=== PATIENT | female | born 1980 | race Caucasian/White ===

== ENCOUNTER 2018-04-16 15:38 | Inpatient (IN) ==
[2018-04-16 16:22] LABS: URINE SOURCE CLEAN CATCH
[2018-04-16 16:28] LABS: BASO# 0.02 X1000 (0.0-0.2); BASO% 0.1 % (0.0-0.8); EOS# 0.12 X1000 (0.0-0.7); EOS% 0.7 % (0.0-10.0); HEMATOCRIT 42.8 % (37.0-47.0); HEMOGLOBIN 13.9 g/dL (12.0-16.0); IMM GRAN# 0.03 X1000 (0.0-0.04); IMM GRAN% 0.2 % (0.0-0.5); LYMPH# 2.27 X1000 (1.2-3.4); LYMPH% 13.1 % (20.5-51.1); MCHC 32.5 g/dL (33-37); MCV 83.3 FL (81-99); MONO# 0.91 X1000 (0.11-0.59); MONO% 5.2 % (1.7-9.3); MPV 9.2 FL (7.4-10.4); NEUT# 14.01 X1000 (1.4-6.5); NEUT% 80.7 % (42.2-75.2); PLT 359 X1000 (130-400); RBC 5.14 XMIL (4.2-5.4); RDW 13.3 % (11.5-14.5); WBC 17.36 X1000 (4.8-10.8)
[2018-04-16 16:32] LABS: BILIRUBIN URINE NEGATIVE (NEGATIVE); BLOOD URINE LARGE (NEGATIVE); COLOR YELLOW; GLUCOSE URINE NEGATIVE (NEGATIVE); KETONE URINE NEGATIVE (NEGATIVE); LEUKOCYTES URINE LARGE (NEGATIVE); NITRITE URINE NEGATIVE (NEGATIVE); PH URINE 5.5; PROTEIN URINE TRACE mg/dL (NEGATIVE); SP GRAVITY URINE 1.018; TURBIDITY URINE HAZY (CLEAR); UROBILINOGEN URINE NORMAL (NORMAL)
[2018-04-16 16:33] LABS: UR EPITHELIAL CELLS <10 /HPF (<10); URINE BACTERIA NEGATIVE /HPF; URINE RBC 20-40 /HPF (<10); URINE WBC TNTC /HPF (<10)
[2018-04-16 16:51] LABS: AGAP 12; ALB/GLOB RATIO 1.3; ALBUMIN 4.3 g/dL (3.5-5.0); ALKALINE PHOSPHATASE 76 U/L (32-104); AMYLASE 34 U/L (20-200); BUN 7 mg/dL (8-22); CALCIUM 9.4 mg/dL (8.8-10.2); CHLORIDE 100 mmol/L (98-107); COSMO 274; CREATININE 0.8 mg/dL (0.5-0.9); ESTIMATED GFR > 60; GLUCOSE 108 mg/dL (70-104); GOT 13 U/L (10-30); GPT 33 U/L (10-36); LIPASE 20 U/L (13-60); POTASSIUM 3.9 mmol/L (3.5-5.1); SODIUM 138 mmol/L (136-145); TCO2 26 mmol/L (25-35); TOTAL BILIRUBIN 0.73 mg/dL (0.20-1.00); TOTAL PROTEIN 7.6 g/dL (6.3-8.3)
--- NOTE | 2018-04-16 16:55 | Diag Imaging Result Doc PS360 ---
CT ABDOMEN/PELVIS W/O CONTRAST - 04/16/2018 INDICATION: PAIN COMPARISON: 04/02/2017 FINDINGS: The lung bases are clear and the heart size is normal. There is severe fatty change of the liver. Stable cholecystectomy clips. There is recurrent, severe diverticulitis. This is at the junction of the descending and sigmoid colon. No free air or drainable fluid collection. Urinary bladder, uterus, ovaries, and rectum are normal. Normal appendix. IMPRESSION: 1. Recurrent, severe acute sigmoid diverticulitis. Recommend treatment and a follow-up colonoscopy when the patient has resolved. 2. Severe fatty liver. This exam was performed using automated exposure control, adjustment of mA or kV according to patient size, and/or use of iterative reconstruction technique Electronically signed by Cornelius Kaminski 04/16/2018 4:52 PM
--- NOTE | 2018-04-16 18:30 | PROVIDER DOCUMENTATION ---
HPI-Abdominal Pain/GI Problem - General Chief Complaint: Abdominal Pain Stated Complaint: ABDOMINAL PAIN Time Seen by Provider: 04/16/18 18:19 Source: patient Allergies/Adverse Reactions: Patient Allergies Allergy/AdvReac Type Severity Reaction Status Date / Time sulfamethoxazole AdvReac Severe meningitis Verified 12/18/17 00:12 [From Bactrim] trimethoprim [From Bactrim] AdvReac Severe meningitis Verified 12/18/17 00:12 Home Medications: Home Medication List Medication Instructions Recorded Confirmed Last Taken Type Amoxicillin/Pot Clavulanate 875 mg PO Q12HR #14 tab 12/18/17 Unknown Rx [Augmentin] Ondansetron [Zofran Odt] 4 mg PO Q6HR #12 tab.rapdis 12/18/17 Unknown Rx - History of Present Illness-ABD Nature of Presenting Problems: 37yof present to ER With c/o left sided abd pain onset Friday. States it got much worse today. Pt reports going to an urgent care yesterday was placed on Cipro for "suspected diverticulitis". Reports low grade fevers of 99.5. Abdominal Pain Onset Location: reports: LLQ, suprapubic Pain Radiation: reports: no radiation Quality of Pain: reports: sharp, stabbing Onset/Duration: reports: 4 days ago Timing: reports: still present, getting worse Associated Symptoms: reports: fever/chills, nausea. denies: constipation, diarrhea, genitourinary problems, vomiting Review of Systems - Adult - REVIEW OF SYSTEMS - ADULT Constitutional: reports: see HPI, chills, fever Eyes: reports: no symptoms reported Ears, Nose, Mouth & Throat: reports: no symptoms reported Cardiovascular: reports: no symptoms reported Respiratory: reports: no symptoms reported Gastrointestinal: reports: see HPI, abdominal pain (left), nausea. denies: diarrhea, rectal bleeding, vomiting Genitourinary: reports: see HPI, dysuria. denies: frequency, flank pain, hematuria, urgency Musculoskeletal: reports: no symptoms reported Integumentary: reports: no symptoms reported Neurological: reports: no symptoms reported Psychiatric: reports: no symptoms reported Endocrine: reports: no symptoms reported Hematologic/Lymphatic: reports: no symptoms reported Allergic/Immunologic: reports: no symptoms reported All Other Systems: Reviewed and Negative Past History - Adult - PAST MEDICAL HISTORY-ADULT Review of Records: reports: Old Records Reviewed, Nursing Assessment Review, Medications Reviewed Major Childhood Illnesses: reports: denies history Cardiovascular: reports: denies history Respiratory: reports: denies history Gastrointestinal: reports: denies history Obstetrical/Gynecological: reports: denies history Genitourinary: reports: denies history Musculoskeletal: reports: denies history Neurological: reports: denies history Psychiatric: reports: denies history Endocrine/Immune: reports: denies history Other Conditions: reports: denies history - PRIOR SURGERIES/PROCEDURES Surgical/Procedure History: reports: cholecystectomy - IMMUNIZATION STATUS Childhood Immunizations: See Nurse Assessment Flu Vaccine: See Nurse Assessment - FAMILY HISTORY Family History: reviewed, not pertinent Physical Exam-General - PHYSICAL EXAM-ADULT Initial Vital Signs Reviewed: Yes - CONSTITUTIONAL General Appearance: alert, mild distress - HEAD, EARS, NOSE, MOUTH & THROAT HENMT: moist mucous membranes, normal ENT inspection - NECK Neck: full range of motion, supple, normal inspection - RESPIRATORY Respiratory: lungs clear, normal breath sounds - CARDIOVASCULAR Cardiovascular: regular rate, rhythm - GASTROINTESTINAL (ABDOMEN) Abdominal Exam: normal bowel sounds, soft, tenderness (left abd). negative: distended, guarding, rigid, rebound - LYMPHATIC Lymphatic: no adenopathy - MUSCULOSKELETAL Back Exam: normal inspection, no vertebral tenderness, CVA tenderness (left) Extremity: normal range of motion, normal gait, normal inspection - SKIN Integumentary: normal color, warm/dry - PSYCHIATRIC Psych/Mental Status: oriented x 3 Progress - PLAN OF CARE/RESULTS Progress/Plan/Lab Results: Vital Signs - 8 hr 04/16/18 15:49 Temperature 98.5 F Pulse Rate 96 H Respiratory Rate 18 Blood Pressure 140/92 O2 Sat by Pulse Oximetry 100 Bedside Urine ED: Urine Bedside Start: 04/16/18 16:11 Freq: Status: Inactive Protocol: Activity Type Activity Date Activity User E-Sign Co-Sign Detail Recorded Client Recorded Date Recorded By Document 04/16/18 16:12 [id number] 04/16/18 16:13 [id number] Edit Status 04/16/18 16:15 BKG DAEMON Active=>Inactive [id number] 04/16/18 16:15 BKG DAEMON 04/16/18 16:12 Point of Care [Bedside Point of Care] -Lot # [id number] - Results Negative -Control Line Visible? Yes Laboratory Results - last 24 hr 04/16/18 04/16/18 04/16/18 15:52 15:52 15:55 WBC 17.36 H RBC 5.14 Hgb 13.9 Hct 42.8 MCV 83.3 MCH 27.0 MCHC 32.5 L RDW Std Deviation 13.3 Plt Count 359 MPV 9.2 Immature Gran % (Auto) 0.2 Neut % (Auto) 80.7 H Lymph % (Auto) 13.1 L [place] % (Auto) 5.2 Eos % (Auto) 0.7 Baso % (Auto) 0.1 Immature Gran # (Auto) 0.03 Neut # (Auto) 14.01 H Lymph # (Auto) 2.27 [place] # (Auto) 0.91 H Eos # (Auto) 0.12 Baso # (Auto) 0.02 Sodium 138 Potassium 3.9 Chloride 100 Carbon Dioxide 26 Anion Gap 12 BUN 7 L Creatinine 0.8 Estimated GFR/1.73 m2 > 60 BUN/Creatinine Ratio 9 Glucose 108 H Calculated Osmolality 274 Calcium 9.4 Total Bilirubin 0.73 AST 13 ALT 33 Alkaline Phosphatase 76 Total Protein 7.6 Albumin 4.3 Globulin 3.3 Albumin/Globulin Ratio 1.3 Amylase 34 Lipase 20 Urine Source CLEAN CATCH Urine Color YELLOW Urine Turbidity HAZY Urine pH 5.5 Ur Specific [place] 1.018 Urine Protein TRACE A Ur Glucose (Stick) NEGATIVE Ur Ketones (Stick) NEGATIVE Urine Blood LARGE A Urine Nitrite NEGATIVE Urine Bilirubin NEGATIVE Urobilinogen Dipstick NORMAL Urine Leukocytes LARGE A Urine WBC (Auto) TNTC A Urine RBC (Auto) 20-40 A U Epithel Cells (Auto) <10 Urine Bacteria (Auto) NEGATIVE Orders Category Date Time Status ED: Urine Bedside ORDERED Care 04/16/18 15:51 Active Saline Loc DIRECTED Care 04/16/18 15:51 Active NPO Diet 04/16/18 15:51 Active Abdomen [CT ABDOMEN/PELVIS W/O CONTRAST] [CT] Stat Exams 04/16/18 16:12 Completed AMYLASE [CHEM] Stat Lab 04/16/18 15:52 Completed CBC WITH ELECTRONIC DIFF [HEME] Stat Lab 04/16/18 15:52 Completed COMPREHENSIVE METABOLIC PANEL [CHEM] Stat Lab 04/16/18 15:52 Completed LIPASE [CHEM] Stat Lab 04/16/18 15:52 Completed URINALYSIS W/POSS RFLX CULT [URINALYSIS] Stat Lab 04/16/18 15:55 Completed URINE CULTURE [RM] Routine Lab 04/16/18 16:54 Received Result Diagrams: 04/16/18 15:52 04/16/18 15:52 - REASSESSMENT Reassessment #1 Time Reassessed: 19:31 (pt updated of admission. agrees with plan. Requests pain med.) - CONSULTS/PCP/HOSPITALIST Notification #1 *Consult/PCP/Hospitalist*: Dr Altman, hospitalist Time Discussed: 19:27 (poss admit for diverticulitis. Requests order for levaquin 750mg IV now and Flagyl 500 q6h.) Consult Disposition: Admit Departure - Departure Date of Disposition Decision: 04/16/18 Time of Disposition Decision: 18:36 DIAGNOSIS: Diverticulitis Disposition: ADMITTED INPATIENT 09 Certified Medical Emergency: Emergent Condition: Fair Referrals and Follow-Ups: Lauren Mcginnis MD [Primary Care Provider] - - Critical Care Note This patient required my direct & personal management of CC.: No Attestation - Physician/ ISREAL Attestation Patient care was provided by Advanced Practice Provider:: Yes Advanced Practice Provider:: Dickson Back Advanced Practice Provider documentation review:: The Mid-level provider documentation, treatment plan and medical decision making was reviewed by the physician who agrees with all treatment and medical decision making by the MLP. The physician spent face to face time with patient:: No Advanced Practice Provider documentation review:: Supervising physician onsite and consulted in the evaluation and care of this patient. The physician did not have a face to face encounter with the patient.
[2018-04-16] MEDS ORDERED: LEVAQUIN 750 MG/D5W 750 MG/150 ML IVPB IV ONE (19:26)
[2018-04-16] MEDS ORDERED: FLAGYL 500 MG/NS 500 MG/100 ML IVPB IV SCH (19:30)
[2018-04-16] MEDS ORDERED: ZOFRAN IV ONE (19:31)
[2018-04-16] MEDS ORDERED: MORPHINE IV ONE (19:31)
--- NOTE | 2018-04-16 22:16 | HISTORY AND PHYSICAL ---
Patient of Lauren Mcginnis MD REASON FOR ADMISSION: Four day history of abdominal pain. HISTORY OF PRESENT ILLNESS: Ms. Shelley Garcia is a 37-year-old woman with a past medical history of hyperlipidemia who comes in to our facility with a 4-day history of left lower quadrant abdominal pain. She was seen in the Urgent Care facility yesterday when her pain became worse. She describes the pain as sharp, worse with movement and eases when she keeps still. Prior to this a week ago she was having protracted nausea and vomiting but after 2 days it stopped on its own. She denies any diarrhea. No hematochezia. No melanotic stools. No hematemesis. She admits to having fever and chills intermittently for the last couple of days. She denies any genitourinary complaints. The patient denies any kind of respiratory complaints. No focal neurological complaints. REVIEW OF SYSTEMS: 12 systems reviewed done and positive findings per HPI. ALLERGIES: Isotretinoin and Bactrim. MEDICATIONS: The patient was prescribed Levsin and Cipro yesterday. FAMILY HISTORY: Notable for diabetes, sleep apnea, diverticulosis, Gilbert's syndrome. SOCIAL HISTORY: The patient does not smoke but drinks one glass of wine per week. No history of drug abuse. He is . PAST SURGICAL HISTORY: Notable for cholecystectomy. LABORATORY DATA: White count 17,000, hemoglobin 13 and hematocrit 42. Platelets 359, 80% neutrophils, BUN 7, creatinine 0.8, glucose 108, lipase, amylase and hepatic function tests negative. Urinalysis positive for too numerous to count WBCs and 20-[address] of abdomen and pelvis showed recurrent severe sigmoid diverticulitis, severe fatty liver disease. PHYSICAL EXAMINATION: VITAL SIGNS: Blood pressure 140/92, heart rate 96, respirations 18, temperature 98.5. She is 100% on room air. GENERAL: She is a morbidly obese, pleasant, young woman with mild distress from her pain. She is alert and oriented to person and time with normal mood and affect. HEENT: Head normocephalic. Atraumatic. Eyes: PERRL, EOMI. Anicteric and not pale. ENT and oropharyngeal exam is grossly unremarkable. No central cyanosis. NECK: Supple. No JVD. No carotid bruit. No thyromegaly. CHEST: Clear to auscultation with good entry in both lung ferrera. CARDIOVASCULAR: First and second heart sounds are heard. No gallops, murmurs or rubs. Rhythm is regular. ABDOMEN: Protuberant and soft with tenderness confined to the left lower quadrant and suprapubic areas but no rebound or guarding. Bowel sounds are almost absent. Abdomen is slightly distended. No masses or megaly. RECTAL: Exam deferred at this time. EXTREMITIES: Patient has good distal pulse volume in all extremities. Rhythm is regular and symmetrical. No edema. No clubbing or peripheral cyanosis. NEUROLOGICAL: No focal deficits. SKIN: Intact. No breakdown, lesion or erythema. MUSCULOSKELETAL: Exam is grossly normal. ASSESSMENT: 1. Acute sigmoidal diverticulitis. 2. Early onset ileus secondary to No. 1. 3. Acute fatty liver disease. 4. Morbid obesity. PLAN: The patient will be started on empiric antibiotics, Flagyl and Levaquin for now. The patient will be kept n.p.o. and IV fluid resuscitation will be given. Followup abdominal x-ray to be done in the morning to ensure the patient is not having severe colonic dilation. The patient will be treated symptomatically for nausea, vomiting and pain. I have consulted Dr. Izaguirre of General Surgery primarily in case the patient deteriorates further and requires emergent surgery, as he can intervene. However, even if she recovers from this event it is highly likely that she will require elective sigmoid colon resection at a later date due to the burden of disease in the sigmoid colon. Strongly advised the patient that she needs to lose weight at all cost due to the fact that she has severe fatty liver disease and probably she may have signs of steatohepatitis. cc: Zeferino Altman MD
[2018-04-16] MEDS ORDERED: MORPHINE IV PRN (22:30)
[2018-04-16] MEDS: NS 1,000 ML IV SCH (22:41)
[2018-04-16] MEDS: LOVENOX SUBQ SCH ×2 (22:42→22:46)
[2018-04-16] MEDS: FLAGYL 500 MG/NS 500 MG/100 ML IVPB IV SCH (22:43)
[2018-04-17] MEDS ORDERED: TYLENOL PO ONE (02:50)
[2018-04-17] MEDS: DILAUDID IV PRN ×6 (03:04→21:59)
[2018-04-17] MEDS: FLAGYL 500 MG/NS 500 MG/100 ML IVPB IV SCH ×4 (04:02→23:49)
[2018-04-17] MEDS: NS 1,000 ML IV SCH ×2 (04:03→10:12)
[2018-04-17] MEDS: ZOFRAN IV PRN ×5 (04:05→22:00)
[2018-04-17 07:07] LABS: BASO# 0.02 X1000 (0.0-0.2); BASO% 0.2 % (0.0-0.8); EOS# 0.05 X1000 (0.0-0.7); EOS% 0.4 % (0.0-10.0); HEMATOCRIT 35.5 % (37.0-47.0); HEMOGLOBIN 11.5 g/dL (12.0-16.0); IMM GRAN# 0.03 X1000 (0.0-0.04); IMM GRAN% 0.2 % (0.0-0.5); LYMPH# 2.22 X1000 (1.2-3.4); LYMPH% 17.1 % (20.5-51.1); MCH 27.4 PG (27-31); MCHC 32.4 g/dL (33-37); MCV 84.5 FL (81-99); MONO# 0.91 X1000 (0.11-0.59); MPV 8.8 FL (7.4-10.4); NEUT# 9.79 X1000 (1.4-6.5); NEUT% 75.1 % (42.2-75.2); PLT 294 X1000 (130-400); RDW 13.3 % (11.5-14.5); WBC 13.02 X1000 (4.8-10.8)
[2018-04-17 07:37] LABS: AGAP 11; ALB/GLOB RATIO 1.3; ALBUMIN 3.4 g/dL (3.5-5.0); ALKALINE PHOSPHATASE 58 U/L (32-104); BUN 7 mg/dL (8-22); CALCIUM 8.3 mg/dL (8.8-10.2); CHLORIDE 103 mmol/L (98-107); COSMO 273; CREATININE 0.8 mg/dL (0.5-0.9); ESTIMATED GFR > 60; GLUCOSE 115 mg/dL (70-104); GOT 10 U/L (10-30); GPT 21 U/L (10-36); POTASSIUM 3.7 mmol/L (3.5-5.1); SODIUM 137 mmol/L (136-145); TCO2 23 mmol/L (25-35); TOTAL BILIRUBIN 1.25 mg/dL (0.20-1.00); TOTAL PROTEIN 6.1 g/dL (6.3-8.3)
--- NOTE | 2018-04-17 09:34 | Diag Imaging Result Doc PS360 ---
ABDOMEN FLAT/UPRIGHT - 04/17/2018 INDICATION: ileus COMPARISON: CT from 04/16/2018 FINDINGS: There is a nonobstructive bowel gas pattern. No free air or abdominal calcifications. There are cholecystectomy clips. IMPRESSION: No acute disease. Electronically signed by Cornelius Kaminski 04/17/2018 9:31 AM
--- NOTE | 2018-04-17 12:00 | PROGRESS NOTE ---
DATE: 04/17/2018 SUBJECTIVE: Patient reports feeling better and less abdominal pain. No nausea. OBJECTIVE: Vital Signs: Temperature 98.6 degrees, heart rate 81, respiratory rate 18, and blood pressure 104/58. O2 saturation 92% on room air. General: This is a morbidly obese 37-year-old female lying in bed in no acute distress. Cardiovascular: S1, S2 heard. No murmurs, gallops, or rubs. Regular rate and rhythm. Respiratory: Clear bilaterally to auscultation. No work of breathing or using accessory muscles. Abdomen: Soft, a little bit distended. Tenderness noted to palpation in the left lower quadrant and suprapubic area, but there are no signs of peritoneal irritation or guarding. Bowel sounds present but hypoactive. No organomegaly noted. Extremities: No clubbing, cyanosis, or edema. Peripheral pulses present in both legs. Neurological: Patient alert and oriented x3. Moves all 4 extremities. LABORATORY DATA: White cell count 13.02, hemoglobin 11.5, hematocrit 35.5, and platelets 294,000. BMP unremarkable. ASSESSMENT AND PLAN: 1. Acute sigmoidal diverticulitis. Clinically, patient is doing good with less abdominal pain. No nausea. White cell count continues to improve. At this point, awaiting Neurology evaluation from GI from General Surgery. We will continue with Levaquin and Flagyl. We will continue checking CBC daily. 2. Acute fatty liver disease. Aware. We will continue to monitor. 3. Morbid obesity. Patient advised to lose weight. cc: Roberto Carlos Ferris MD
--- NOTE | 2018-04-17 15:32 | GENERAL SURGERY CONSULTATION ---
DATE: 04/17/2018 REQUESTING PHYSICIAN: Hospitalist Service. REASON FOR CONSULTATION: Recurrent diverticulitis. HISTORY OF PRESENT ILLNESS: A 37-year-old female presenting with a past medical history for hyperlipidemia, presenting with a four-day history of lower abdominal pain on the left side. She was diagnosed with diverticulitis. This apparently is her third episode of diverticulitis. She has been admitted. She is feeling a little bit better. She has been started on IV antibiotics. I have been asked to weigh an opinion. The CT scan did not show perforation. PAST MEDICAL HISTORY: Hyperlipidemia. PAST SURGICAL HISTORY: Cholecystectomy. HOME MEDICATIONS: Levsin and Cipro yesterday. ALLERGIES: Retinoic acid and Bactrim. FAMILY HISTORY: Positive for diabetes, sleep apnea, diverticulosis and Gilbert's syndrome. SOCIAL HISTORY: Does not smoke. REVIEW OF SYSTEMS: A full 10 point review of systems obtained; negative except as otherwise specified in HPI. PHYSICAL EXAMINATION: Vital Signs: Patient is currently afebrile. Her vital signs are stable. General exam: No acute distress, but looks uncomfortable. female looks stated age. HEENT: Normocephalic, atraumatic. Pupils equal, round, reactive to light. Mucous membranes moist. Oropharynx benign. Neck: Supple. Trachea midline. Cardiovascular: Regular rate and rhythm. Lungs: Grossly clear. Abdomen: Soft, tender to palpation on the left side in the flank and down suprapubically. No peritoneal signs. Extremities: Moves all extremities. Neurologic: Grossly intact. Skin: No signs of jaundice. Vascular: All extremities perfused. LABORATORY AND X-RAY: White blood cell count is 13, which is down from 17, hematocrit 35, platelet count 294. Remainder of labs reviewed. Of note, her bilirubin is slightly elevated at 1.25. CT scan independently reviewed and radiology report reviewed. She does have diverticulitis, but no signs of perforation. ASSESSMENT AND PLAN: A 37-year-old female with recurrent diverticulitis. 1. Diverticulitis. At this time given the fact this is a third episode, she needs to likely have surgical intervention, but would like to try to get her through this. I have discussed with her the natural course of diverticulitis. We will keep her on intravenous antibiotics. I discussed with her that I can do a colonoscopy on her in 6 weeks after she resolves from this episode, and then plan on elective resection robotically. We will try to get her through this without any emergent operation, but we will monitor her closely. I appreciate the consultation. cc: Arthur Elam MD
[2018-04-17] MEDS: LEVAQUIN 750 MG/D5W 750 MG/150 ML IVPB IV SCH (21:58)
[2018-04-17] MEDS: LOVENOX SUBQ SCH (21:59)
[2018-04-18] MEDS: FLAGYL 500 MG/NS 500 MG/100 ML IVPB IV SCH ×2 (04:02→13:17)
[2018-04-18 06:45] LABS: BASO# 0.03 X1000 (0.0-0.2); BASO% 0.3 % (0.0-0.8); EOS# 0.15 X1000 (0.0-0.7); EOS% 1.4 % (0.0-10.0); HEMATOCRIT 37.2 % (37.0-47.0); HEMOGLOBIN 12.2 g/dL (12.0-16.0); IMM GRAN# 0.02 X1000 (0.0-0.04); IMM GRAN% 0.2 % (0.0-0.5); LYMPH% 19.8 % (20.5-51.1); MCH 27.5 PG (27-31); MCHC 32.8 g/dL (33-37); MONO# 0.71 X1000 (0.11-0.59); MONO% 6.7 % (1.7-9.3); NEUT# 7.58 X1000 (1.4-6.5); NEUT% 71.6 % (42.2-75.2); PLT 317 X1000 (130-400); RBC 4.43 XMIL (4.2-5.4); RDW 13.1 % (11.5-14.5); WBC 10.59 X1000 (4.8-10.8)
[2018-04-18] MEDS: NORCO-5 PO PRN ×4 (06:51→22:53)
[2018-04-18 07:04] LABS: AGAP 12; BUN 5 mg/dL (8-22); CALCIUM 8.7 mg/dL (8.8-10.2); CHLORIDE 102 mmol/L (98-107); COSMO 269; CREATININE 0.8 mg/dL (0.5-0.9); ESTIMATED GFR > 60; GLUCOSE 90 mg/dL (70-104); POTASSIUM 3.9 mmol/L (3.5-5.1); SODIUM 136 mmol/L (136-145); TCO2 22 mmol/L (25-35)
[2018-04-18] MEDS: LEVAQUIN 750 MG/D5W 750 MG/150 ML IVPB IV SCH (09:41)
--- NOTE | 2018-04-18 12:29 | GENERAL SURGERY PROGRESS NOTE ---
DATE: 04/18/2018 SUBJECTIVE: Patient seems to be doing better. She did have a low-grade fever last night, but otherwise is doing okay. She also had some diarrhea. OBJECTIVE: Vital Signs: Patient's current temperature 99.8 degrees. The remainder of her vital signs have been stable. General exam: No acute distress. HEENT: Normocephalic, atraumatic. Pupils equal, round, reactive to light. Mucous membranes moist. Oropharynx benign. Neck: Supple. Trachea midline. Cardiovascular: Regular rate and rhythm. Lungs: Grossly clear. Abdomen: Soft. Less tender to palpation. No peritoneal signs. Extremities: Moves all extremities. Neurologic: Grossly intact. Skin: No signs of jaundice. Vascular: All extremities perfused. LABORATORY: None this morning as of yet. ASSESSMENT AND PLAN: A 37-year-old with recurrent diverticulitis: 1. Recurrent diverticulitis. At this point, we will advance to a clear liquid diet. We will transition over to oral pain medicine. She seems to be doing well with the current antibiotic treatment. We will continue to monitor and hopefully progress her. Goal is to have a colonoscopy done by me in 6 weeks and then plan for surgical intervention. This was all again discussed with the patient and her . We will continue to follow while she is in the hospital. cc: Arthur Elam MD
--- NOTE | 2018-04-18 12:40 | PROGRESS NOTE ---
DATE: 04/18/2018 SUBJECTIVE: The patient reports feeling a little bit feverish overnight, but now she is feeling okay. She was given clear liquids this morning, and she pretty much tolerated it very well. OBJECTIVE: Temperature is 99.5, heart rate 84, respiratory rate 18, blood pressure 113/71, O2 saturation 94% on room air. General: This is a morbidly obese 37-year-old female lying in bed, in no acute distress. Cardiovascular: S1 and S2 heard. No murmurs, gallops or rubs. Regular rate and rhythm. Respiratory: Clear bilaterally to auscultation. No work of breathing or using accessory muscles. Abdomen: Soft. A little bit distended. Also there is tenderness to palpation in the left lower quadrant and suprapubic area, definitely better when compared with yesterday. No signs of peritoneal irritation or guarding. Bowel sounds present but hypoactive. No organomegaly. Extremities: No clubbing, cyanosis or edema. Peripheral pulses present in both legs. Neurologic: The patient is alert and oriented x3. Moves all 4 extremities. DIAGNOSTIC DATA: White cell count is 10.59, hemoglobin 12.2, hematocrit 37.2, platelets 317. Normal BMP. ASSESSMENT AND PLAN: 1. Acute sigmoidal diverticulitis. Clinically this patient is doing good. There is less abdominal pain, and white cell count is back to normal. At this point, we will continue with antibiotics, in this case, Levaquin and Flagyl. I think if the patient tolerates diet and labs are okay, we can discharge her home. 2. Fatty liver disease. Aware. 3. Morbid obesity. The patient is advised to lose weight. DISPOSITION: We will continue to monitor this patient closely, and if tomorrow she is feeling better, she can be discharged. cc: Roberto Carlos Ferris MD
[2018-04-18] MEDS: FLAGYL PO SCH ×2 (16:25→22:53)
[2018-04-18] MEDS: LOVENOX SUBQ SCH (23:00)
[2018-04-19] MEDS: NORCO-5 PO PRN (05:17)
[2018-04-19] MEDS: FLAGYL PO SCH (05:17)
--- NOTE | 2018-04-19 06:46 | GENERAL SURGERY PROGRESS NOTE ---
DATE: 04/19/2018 SUBJECTIVE: Patient seems to be doing well. She has tolerated clear liquid diet. Her pain is much improved. OBJECTIVE: Vital Signs: Patient is currently afebrile. Vital signs are stable. General: No acute distress. HEENT: Normocephalic, atraumatic. Pupils equal, round, reactive to light. Mucous membranes moist. Oropharynx benign. Neck: Supple. Trachea midline. Cardiovascular: Regular rate and rhythm. Lungs: Grossly clear. Abdomen: Soft. Less tender to palpation. No peritoneal signs. Extremities: Moves all extremities. Neurologic: Grossly intact. Skin: No signs of jaundice. Vascular: All extremities perfused. LABORATORY: Reviewed from yesterday. White count has normalized. ASSESSMENT AND PLAN: A 37-year-old with recurrent diverticulitis. Recurrent diverticulitis. At this time, we will advance to a regular diet. I think from a surgical point of view, she in the process of healing up from her diverticulitis. I have recommended continuing her oral antibiotics. She can be discharged later today if she does okay. I would like to see her in the office in a week or 2 to discuss colonoscopy and subsequent resection. cc: Arthur Elam MD
[2018-04-19 06:48] LABS: BASO# 0.02 X1000 (0.0-0.2); BASO% 0.2 % (0.0-0.8); EOS# 0.26 X1000 (0.0-0.7); HEMATOCRIT 37.9 % (37.0-47.0); HEMOGLOBIN 12.4 g/dL (12.0-16.0); LYMPH% 27.9 % (20.5-51.1); MCH 27.4 PG (27-31); MCHC 32.7 g/dL (33-37); MCV 83.7 FL (81-99); NEUT# 5.32 X1000 (1.4-6.5); NEUT% 61.9 % (42.2-75.2); PLT 325 X1000 (130-400); RBC 4.53 XMIL (4.2-5.4); RDW 13.1 % (11.5-14.5)
[2018-04-19 07:19] LABS: AGAP 11; BUN 5 mg/dL (8-22); CALCIUM 9.3 mg/dL (8.8-10.2); CHLORIDE 106 mmol/L (98-107); COSMO 278; CREATININE 0.8 mg/dL (0.5-0.9); ESTIMATED GFR > 60; GLUCOSE 91 mg/dL (70-104); POTASSIUM 3.8 mmol/L (3.5-5.1); SODIUM 141 mmol/L (136-145); TCO2 24 mmol/L (25-35)
[2018-04-19 07:51] VITALS: BP 121/74
[2018-04-19] MEDS ORDERED: LEVAQUIN PO SCH (09:00)
--- NOTE | 2018-04-19 12:03 | DISCHARGE SUMMARY ---
ADMISSION DATE: 04/16/2018 DISCHARGE DATE: 04/19/2018 DISCHARGE DIAGNOSES: 1. Acute sigmoidal diverticulitis, improved. 2. Early onset of ileus secondary to condition #1, resolved. 3. Fatty liver disease. 4. Morbid obesity. CONSULTATIONS: Dr. Arthur Elam from general surgery. PROCEDURES: 1. CT of the abdomen and pelvis without contrast showed recurrent severe acute sigmoid diverticulitis with severe fatty liver disease. 2. Abdominal x-ray showed no acute disease. HOSPITAL COURSE: This is a 37-year-old, female with a past medical history of hyperlipidemia who came to the hospital with a 4-day history of left lower quadrant abdominal pain. The patient was originally seen an urgent care. She was sent to the hospital. The abdomen and pelvis CT showed results as above. The patient was started on IV antibiotics, IV fluids, and pain medications. The patient started getting better. Dr. Elam from general surgery has been involved and he recommends surgery but as an outpatient. On the day of discharge, today, she was feeling completely fine. Eating a GI soft diet. At this point, we are going to discharge this patient. We will provide 10 days of antibiotics. We will recommend seeing Dr. Rojas's in the office in 10 days. The patient is going to be discharged in a stable condition. DISCHARGE PHYSICAL EXAMINATION: Vital Signs: Temperature 98.5 degrees, heart rate 82, respiratory rate 18, blood pressure 121/74, O2 saturation 96% on room air. General Examination: These the 37-year-old, female, lying in bed, in no acute distress. HEENT: Head is normocephalic and atraumatic. Neck: No JVD noted. No carotid bruits. No lymphadenopathy. No thyromegaly. Cardiovascular Examination: S1 and S2 heard. No murmurs, gallops, or rubs. Regular rate and rhythm. Respiratory Examination: Clear bilaterally to auscultation. No work of breathing or using accessory muscles. Abdomen: Soft, nontender to palpation. Bowel sounds present. No organomegaly. Extremities: No clubbing, cyanosis, or edema. Peripheral pulses present in both legs. Neurological Examination: The patient is alert and oriented x3. Moves 4 extremities. DISCHARGE DISPOSITION: Home to self-care. LIST OF MEDICATIONS: 1. Levofloxacin 750 mg 1 tablet p.o. daily for 10 days. 2. Metronidazole 500 mg 1 tablet p.o. 3 times daily for 10 days. 3. Waelder 5 mg 1 tablet p.o. every 4 hours p.r.n. for pain. 4. Levsin 1 tablet p.o. q.4 hours as needed for abdominal pain. FOLLOWUP: With Dr. Arthur Elam in the office in 2 weeks for possible scheduled surgery. cc: Roberto Carlos Ferris MD
== END 2018-04-19 11:58 | disposition home or self-care (01) | DRG 392 ==
LOC: ED 15:38 → 4N 22:04 → SUATTDRO 22:04 → 4N 04-17 18:59
PROVIDERS: ATTEND Internal Medicine
CPT/HCPCS: 74019; 74020; 74176; 80048; 80053; 81001; 81025; 82150; 83690; 85025; 86140; 87040; 87088; 96365; 96367; 96375; 99285; A9270; J1170; J1650; J1956; J2270; J2405; J7030; S0030

== ENCOUNTER 2018-07-24 05:23 | Inpatient (IN) ==
[2018-07-20 11:22] LABS: BASO# 0.04 X1000 (0.0-0.2); BASO% 0.4 % (0.0-0.8); EOS# 0.15 X1000 (0.0-0.7); EOS% 1.3 % (0.0-10.0); HEMATOCRIT 40.8 % (37.0-47.0); HEMOGLOBIN 13.8 g/dL (12.0-16.0); IMM GRAN# 0.03 X1000 (0.0-0.04); IMM GRAN% 0.3 % (0.0-0.5); LYMPH# 3.11 X1000 (1.2-3.4); LYMPH% 27.6 % (20.5-51.1); MCH 27.7 PG (27-31); MCHC 33.8 g/dL (33-37); MCV 81.8 FL (81-99); MONO# 0.61 X1000 (0.11-0.59); MONO% 5.4 % (1.7-9.3); MPV 9.1 FL (7.4-10.4); NEUT# 7.34 X1000 (1.4-6.5); PLT 338 X1000 (130-400); RBC 4.99 XMIL (4.2-5.4); RDW 13.8 % (11.5-14.5); WBC 11.28 X1000 (4.8-10.8)
[2018-07-24] MEDS ORDERED: ENTEREG ONE (05:56)
[2018-07-24] MEDS ORDERED: LR 1,000 ML ONE ×2 (05:57→06:27)
[2018-07-24] MEDS ORDERED: MEFOXIN 1 GM/D5W 2 GM/100 ML IVPB ONE (05:57)
[2018-07-24] MEDS ORDERED: MARCAINE 0.25% PF/EPI 1:200,000 ONE (06:27)
[2018-07-24] MEDS ORDERED: DIPRIVAN 1% ONE (06:33)
[2018-07-24] MEDS ORDERED: NORCURON ONE (06:36)
[2018-07-24] MEDS ORDERED: SODIUM CHLORIDE 0.9% 10 ML ONE ×2 (06:36→06:53)
[2018-07-24] MEDS ORDERED: QUELICIN (DOSE) ONE (06:36)
[2018-07-24] MEDS ORDERED: VERSED ONE (06:36)
[2018-07-24] MEDS ORDERED: FENTANYL ONE (06:38)
[2018-07-24] MEDS ORDERED: NAROPIN 0.5% ONE (06:53)
[2018-07-24] MEDS ORDERED: EXPAREL 1.3% ONE (06:54)
[2018-07-24] MEDS ORDERED: DECADRON ONE (07:24)
[2018-07-24] MEDS ORDERED: ZOFRAN ONE (07:24)
[2018-07-24] MEDS ORDERED: TORADOL ONE (07:24)
[2018-07-24 09:25] LABS: URINE SOURCE CATH
[2018-07-24] MEDS ORDERED: NEOSTIGMINE ONE (09:28)
[2018-07-24] MEDS ORDERED: ROBINUL ONE (09:28)
[2018-07-24 09:35] LABS: BILIRUBIN URINE NEGATIVE (NEGATIVE); BLOOD URINE NEGATIVE (NEGATIVE); COLOR YELLOW; GLUCOSE URINE NEGATIVE (NEGATIVE); KETONE URINE NEGATIVE (NEGATIVE); LEUKOCYTES URINE NEGATIVE (NEGATIVE); NITRITE URINE NEGATIVE (NEGATIVE); PH URINE 5.5; PROTEIN URINE NEGATIVE (NEGATIVE); SP GRAVITY URINE 1.022; TURBIDITY URINE CLEAR (CLEAR); UR EPITHELIAL CELLS <10 /HPF (<10); URINE BACTERIA NEGATIVE /HPF; URINE RBC <10 /HPF (<10); URINE WBC <10 /HPF (<10); UROBILINOGEN URINE NORMAL (NORMAL)
[2018-07-24] MEDS ORDERED: D5 1/2 NS + KCL 20 MEQ 1,000 ML ONE (10:17)
[2018-07-24] MEDS: DILAUDID ONE ×2 (10:27→10:30)
[2018-07-24] MEDS: PHENERGAN ONE ×2 (10:29→10:32)
[2018-07-24] MEDS ORDERED: POTASSIUM CHLORIDE 20 MEQ in D5 1/2 NS 1,000 ML IV SCH (11:00)
[2018-07-24] MEDS: ULTRAM PO PRN ×2 (12:44→20:52)
[2018-07-24] MEDS: ZOFRAN IV PRN ×2 (12:45→20:52)
--- NOTE | 2018-07-24 13:58 | OPERATIVE NOTE ---
PROCEDURE DATE: 07/24/2018 PREOPERATIVE DIAGNOSIS: History of perforated sigmoid diverticulitis. POSTOPERATIVE DIAGNOSIS: History of perforated sigmoid diverticulitis. PROCEDURE: Laparoscopic robot-assisted sigmoid resection. SURGEON: Arthur Elam MD. ROPE LAYING MACHINE OPERATOR: Dr. Richards. Dr. Richards assisted with the entirety of the case. His presence was crucial for the completion of the case. ANESTHESIA: General endotracheal. OPERATIVE FINDINGS: As dictated. COMPLICATIONS: None at the time of this dictation. ESTIMATED BLOOD LOSS: 50 mL. SPECIMEN REMOVED: Sigmoid colon. BRIEF HISTORY: A 37-year-old female who has had multiple episodes of diverticulitis. It was felt that she would benefit from resection. The risks, benefits, and alternatives were discussed. All questions answered. DESCRIPTION OF PROCEDURE: After informed consent was obtained, the patient was brought to the operative theater, transferred to the operative table, placed in supine position. General endotracheal anesthesia was then performed without complication. A formal time- out was then performed confirming patient, date, and procedure. All in agreement. At that time, the patient was repositioned in lithotomy. The abdomen was prepped and draped in sterile fashion. After the time-out, we turned our attention to the abdomen. We made our first trocar incision just to the right and just superior to the umbilicus. Using Optiview technique, we inserted the trocar, connected to insufflation, pneumoperitoneum was achieved. We placed the remaining trocars, 8 mm at essentially the anterior axillary line in the left upper quadrant, 1 trocar between this and the initial trocar, a trocar half the distance between the anterosuperior iliac spine in the right lower quadrant, and the initial trocar and an family service assistant trocar up in the right upper quadrant. We then docked the robot. I turned my attention to the robot console. We examined the abdomen and saw no major pathology except for sigmoid diverticulitis. We elevated the sigmoid colon, started with a medial to lateral dissection, isolating the inferior mesenteric arteries and dissecting them in the mesentery. We freed up the area that looked the most diseased. We took it all the way down distally to the rectum and proximally to an area that looked free of diverticular disease burden. We used Firefly to identify perfusion. We had good ends, good perfusion. Again, we took down the major vessels with the vessel sealer. Once we had done this, we isolated the area in the distal end that we were going to transect right again at the rectosigmoid plane. We fired a stapler across this with good results. We then made an incision after de-docking the robot in the left lower quadrant, eviscerated the colon through this and a wound protector, transected the proximal end, used a pursestring device, placed a 28 anvil in, cleaned up this end completely, then placed it back into the abdomen. We then did an end-to-end anastomosis with an EEA stapler with good results. We then tested it under water. It was air tight. There were 2 donuts noted on the EEA stapler. We then irrigated out the abdomen until the suction fluid was clear. We closed the left lower quadrant incision with a running Maxon suture with good results. We then closed the remaining trocar sites after removing the trocars and de-docking the robot. The patient tolerated the procedure well and will be transferred to the floor. cc: MD CIRO Tavarez
[2018-07-24] MEDS: D5 1/2 NS + KCL 20 MEQ 1,000 ML IV SCH (14:25)
[2018-07-24] MEDS: MEFOXIN 2 GM in D5W 50 ML IV SCH (14:25)
[2018-07-24] MEDS: OFIRMEV 1000 MG/ISOTONIC SOLN 1,000 MG/100 ML BOTTLE IV SCH ×2 (14:25→22:26)
[2018-07-24] MEDS: HEPARIN SUBQ SCH (22:30)
[2018-07-25] MEDS: MEFOXIN 2 GM in D5W 50 ML IV SCH ×3 (00:39→13:51)
[2018-07-25] MEDS: OFIRMEV 1000 MG/ISOTONIC SOLN 1,000 MG/100 ML BOTTLE IV SCH ×2 (05:43→09:58)
[2018-07-25] MEDS: HEPARIN SUBQ SCH ×3 (05:45→21:48)
[2018-07-25] MEDS: ULTRAM PO PRN ×3 (06:28→21:48)
[2018-07-25] MEDS: D5 1/2 NS + KCL 20 MEQ 1,000 ML IV SCH (06:29)
--- NOTE | 2018-07-25 09:21 | PROGRESS NOTE ---
DATE: 07/25/2018 Ms. Shelley Garcia is a 37-year-old female postoperative day 1 from a robotic assisted laparoscopic sigmoid colon resection. She is awake. She is sore. She wants her Rendon catheter tube out. Her heart rate is 69, blood pressure 109/69, O2 saturation is 94%. She is afebrile on no antibiotics. Her trocar incisions seemed to be intact. Her abdomen is mostly soft. PLAN: We will take her intermittent compression hose off because she is getting heparin subcu and we will also remove her Rendon. We will continue her on a full liquid diet for now. cc: MD Arthur Ragsdale MD
[2018-07-25] MEDS: ENTEREG PO SCH ×2 (09:58→21:47)
[2018-07-25] MEDS ORDERED: TYLENOL PR PRN (12:00)
[2018-07-25] MEDS: PERIDEX MT SCH ×2 (13:42→21:48)
[2018-07-25] MEDS: TYLENOL PO PRN ×3 (13:51→21:52)
[2018-07-26] MEDS: TYLENOL PO PRN ×3 (02:35→21:20)
[2018-07-26] MEDS: D5 1/2 NS + KCL 20 MEQ 1,000 ML IV SCH (02:37)
[2018-07-26] MEDS: HEPARIN SUBQ SCH ×3 (05:23→20:32)
[2018-07-26] MEDS: ULTRAM PO PRN (05:24)
[2018-07-26] MEDS: PERIDEX MT SCH ×2 (09:17→20:32)
[2018-07-26] MEDS: ENTEREG PO SCH ×2 (09:17→20:31)
[2018-07-26] MEDS: NORCO-10 PO PRN ×3 (09:17→20:31)
--- NOTE | 2018-07-26 09:22 | PROGRESS NOTE ---
DATE: 07/26/2018 SUBJECTIVE: Ms. Shelley Garcia is now postop day 2 from a robotic-assisted laparoscopic sigmoid colon resection for diverticulitis. She continues to have abdominal discomfort related to her trocar sites in the left lower quadrant but she is awake, cooperative, and she has been good about moving around in her room. OBJECTIVE: Vital Signs: Her heart rate is 75, blood pressure 114/67, O2 saturation 95%. She is afebrile. She is voiding without Rendon. She is on a GI soft diet but she is not taking much. We will re-evaluate weight her pain medication. cc: MD Arthur Ragsdale MD
[2018-07-27] MEDS: HEPARIN SUBQ SCH ×3 (01:16→14:21)
[2018-07-27] MEDS: NORCO-10 PO PRN ×3 (03:22→15:16)
[2018-07-27] MEDS: ZOFRAN IV PRN (03:25)
--- NOTE | 2018-07-27 07:13 | GENERAL SURGERY PROGRESS NOTE ---
DATE: 07/27/2018 SUBJECTIVE: Patient doing okay. She has had a bowel movement. She is tolerating a regular diet. OBJECTIVE: Vital Signs: The patient is currently afebrile. Her vital signs are stable. General Examination: No acute distress. Cardiovascular: Regular rate and rhythm. Lungs: Grossly clear. Abdomen: Soft. Appropriately tender. Incision is healing okay. Bowel sounds auscultated. ASSESSMENT AND PLAN: A 37-year-old female, currently postoperative day #3 from robotic-assisted low anterior resection. Postoperative state. At this time, the patient is doing well. We will consider potential discharge today if she is up and moving, and tolerating a regular diet, and her pain is controlled. Otherwise, continue to monitor. cc: Arthur Elam MD
[2018-07-27] MEDS: PERIDEX MT SCH (09:19)
[2018-07-27] MEDS: ENTEREG PO SCH (09:19)
[2018-07-27 12:23] VITALS: BP 115/56
--- NOTE | 2018-07-29 07:13 | DISCHARGE SUMMARY ---
ADMISSION DATE: 07/24/2018 DISCHARGE DATE: 07/27/2018 ADMITTING DIAGNOSIS: Recurrent diverticulitis. DISCHARGE DIAGNOSIS: Status post laparoscopic robot assisted sigmoid resection. ADMITTING PHYSICIAN: Arthur Elam MD CONSULTATION: None. PROCEDURES: On 07/24/2018, patient underwent laparoscopic robot assisted sigmoid resection. BRIEF HISTORY AND COURSE OF STAY: Patient is a 37-year-old female who had recurrent diverticulitis. She was admitted and underwent the previously described procedure. Her postoperative course was essentially uneventful. She was started on a regular diet. She did have some initial pain control issues, but by postop day #3, this had resolved. By postop day #3, she had been tolerating a regular diet, having bowel movements. It is felt that she would be safe to be discharged home. She was up and ambulating, and doing well. Overall, she had met all milestones needed for discharge. At that point, arrangements were made for her to go home. DISCHARGE CONDITION: Stable, DISPOSITION: Home. FOLLOW-UP INSTRUCTIONS: The patient told to follow up with Dr. Elam in 1 to 2 weeks. DISCHARGE MEDICATIONS: Patient given prescription for pain medicine. cc: Arthur Elam MD
== END 2018-07-27 15:26 | disposition home or self-care (01) | DRG 331 ==
LOC: SURHOLD 05:23 → EDSTATUS 07:00 → 4N 11:08
PROVIDERS: ADMIT Surgery; ATTEND Surgery
CPT/HCPCS: 81001; 84703; 85025; 88307; 94761; 94799; A9270; C9290; J0131; J0330; J0694; J1100; J1170; J1644; J1885; J2250; J2405; J2550; J2795; J3010; J3480; J7060; J7120; S2900